=== PATIENT | male | born 1965 | race Caucasian/White ===

== ENCOUNTER 2025-05-09 07:00 | Outpatient (REF) | payer OTHER, SELFPAY ==
--- OUTSIDE RECORDS SUMMARY | 2025-05-09 07:06 | XMS_ITS | Encounter Summary ---
Author Organization [facility]ly [facility] Address [address] [facility] [address] [place] [address] Phone Care Team Providers Care Science Teacher Name Role Phone Mitch Lr MD Unavailable [phone] Anirudh Marcus DO Unavailable [phone] Mitch Lr MD Primary Care Provid er Encounter Details Date Type Department Care Team (Latest Contact Info) Description 05/17/2018 Transcribe Orders [facility] 30 [place], [place] [phone] Mitch Lr MD [address] [phone] Essential hypertension, malignant (Primary Dx) Social History Tobacco Use Types Packs/Day Years Used Date Smoking Tobacco: Never Assessed Sex and Gender Information Value Date Recorded Sex Assigned at Not on file Legal Sex Male 7:27 PM EST Gender Identity Not on file Sexual Orientation Not on file documented as of this encounter Plan of Treatment Not on file documented as of this encounter Procedures Procedure Name Priority Date/Time Associated Diagnosis Comments CBC Routine 05/17/2018 8:16 AM EST Essential hypertension, malignant PSA (SCREENING) Routine 05/17/2018 8:16 AM EST Essential hypertension, malignant LIPID PANEL Routine 05/17/2018 8:16 AM EST Essential hypertension, malignant BASIC METABOLIC PANEL (BMP) Routine 05/17/2018 8:16 AM EST Essential hypertension, malignant documented in this encounter Results * (ABNORMAL) Basic metabolic panel (05/17/2018 8:16 AM EST) SODIUM 141 133 - 146 mmol/L [facility] CHLORIDE 102 96 - 108 mmol/L [facility] POTASSIUM 4.4 3.3 - 5.1 mmol/L [facility] CO2 28 21 - 35 mmol/L [facility] BUN 17 6 - 19 mg/dL [facility] CREATININE 1.00 0.5 - 1.5 mg/dL [facility] GLUCOSE 101(H) 70 - 99 mg/dL [facility] CALCIUM 8.9 8.4 - 10.3 mg/dL [facility] EGFR 87 >59 mL/min/1.7 3m2 [facility] Comment:If patient is black, multiply result by 1.159. Estimated glomerular filtration rate calculated using the CKD-EPI equation. ANION GAP 15 10 - 20 mmol/L [facility] Blood 05/17/2018 8:16 AM EST 05/17/2018 8:18 AM EST us Mitch Lr MD LAB BLOOD BKR ORDERA BLES Final Result [address] [address] * (ABNORMAL) Lipid panel (05/17/2018 8:16 AM EST) HDL 63 mg/dL [facility] Comment: Interpretation <40 mg/dL: Low HDL cholesterol (major risk factor for CHD) Greater than or equal to 60 mg/dL: High HDL cholesterol ( negative risk factor for CHD) HDL - cholesterol is affected by a number of factors, e.g. smoking, excerise, hormones, sex and age. CHOLESTEROL 189 0 - 240 mg/dL [facility] TRIGLYCERIDES 52 30 - 160 mg/dL [facility] LDL 116 50 - 129 mg/dL [facility] Comment: LDL levels in terms of risk for coronary heart disease: <100 mg/dL: Optimal 100-129 mg/dL: Near or above optimal 130-159 mg/dL: Borderline high 160-189 mg/dL: High >190 mg/dL: Very High CARDIAC RISK RATIO 3.0(L) 3.4 - 5.0 C [facility] Blood 05/17/2018 8:16 AM EST 05/17/2018 8:18 AM EST Mitch Lr MD LAB BLOOD BKR ORDERA BLES Final Result [address] [address] * CBC (05/17/2018 8:16 AM EST) WBC 5.12 3.40 - 11.20 K/uL [facility] RBC 4.73 4.50 - 5.50 M/uL [facility] HGB 14.3 13.0 - 17.0 g/dL [facility] HCT 42.8 40.0 - 51.0 % [facility] PLT 159 130 - 400 K/uL [facility] MCV 90.5 79.0 - 98.0 fL [facility] MCH 30.2 27.0 - 34.8 pg [facility] MCHC 33.4 31.5 - 36.0 g/dL [facility] RDW 12.4 10.8 - 14.6 % [facility] MPV 10.2 9.4 - 12.4 fl [facility] NRBC 0.00 0.00 /100 WBCs [facility] ABSOLUTE NRBC 0.00 0.00 K/uL [facility] Blood 05/17/2018 8:16 AM EST 05/17/2018 8:18 AM EST Mitch Lr MD LAB BLOOD BKR ORDERA BLES Final Result [address] [address] * PSA (screening) (05/17/2018 8:16 AM EST) PSA 1.21 0 - 4.00 ng/mL [facility] Blood 05/17/2018 8:16 AM EST 05/17/2018 8:19 AM EST Mitch Lr MD LAB BLOOD BKR ORDERA BLES Final Result [facility] [address] [place] [address] documented in this encounter Visit Diagnoses Diagnosis Essential hypertension, malignant- Primary documented in this encounter Additional Health Concerns Infection Onset Date Last Indicated Resolved Time CoV-Risk 11/10/2019 11/10/2019 11/24/2019 1:23 AM EDT CoV-Risk 06/29/2020 07/01/2020 07/11/2020 1:23 AM EST CoV-Risk 01/23/2022 01/23/2022 01/24/2022 12:2 4 PM EDT COVID-19 01/23/2022 01/23/2022 02/13/2022 1:21 AM EDT documented as of this encounter Care Teams Science Teacher Relationship Specialty Start Date End Date Mitch Lr MD [address] [phone] PCP - General 07/07/17 Mitch Lr MD [address] [phone] Historical LMR Provider 04/21/17 Anirudh Marcus DO 4 [facility] Orthopedics & Sports Medicine, [facility] [place] [address] Historical LMR Provider 04/21/17 documented as of this encounter Additional Source Comments The information contained in this document represents components of the legal health record. It is not the complete legal health record.[facility]
--- OUTSIDE RECORDS SUMMARY | 2025-05-09 07:06 | XMS_ITS | Encounter Summary ---
Author Organization [facility] Address [address] [place] [address] Phone Care Team Providers Care Musical Therapist Name Role Phone Mitch Lr MD Unavailable [phone] Anirudh Marcus DO Unavailable [phone] Mitch Lr MD Primary Care Provid er Encounter Details Date Type Department Care Team (Late st Contact Info) Description 11/26/2020 Procedure Pass [facility], [address] [address] Social History Tobacco Use Types Packs/Day Years Used Date Smoking Tobacco: Never Smokeless Tobacco: Never Alcohol Use Standard Drinks/Week Comments Yes 0 (1 standard drink = 0.6 oz pur e alcohol) 2 beers a day Sex and Gender Information Value Date Recorded Sex Assigned at Not on file Legal Sex Male 7:27 PM EST Gender Identity Not on file Sexual Orientation Not on file documented as of this encounter Last Filed Vital Signs Vital Sign Reading Time Taken Comments Blood Pressure - - Pulse - - Temperature - - Respiratory Rate - - Oxygen Saturation - - Inhaled Oxygen Concentration - - Weight 95.3 kg (210 lb) 11/26/2020 1:33 PM EDT Height 200.7 cm (6' 7 ) 11/26/2020 1:33 PM EDT Body Mass Index 23.66 11/26/2020 1:33 PM EDT documented in this encounter Plan of Treatment Not on file documented as of this encounter Visit Diagnoses Not on filedocumented in this encounter Additional Health Concerns Infection Onset Date Last Indicated Resolved Time CoV-Risk 01/23/2022 01/23/2022 01/24/2022 12:2 4 PM EDT COVID-19 01/23/2022 01/23/2022 02/13/2022 1:21 AM EDT documented as of this encounter Care Teams Musical Therapist Relationship Specialty Start Date End Date Mitch Lr MD [address] [phone] PCP - General 07/07/17 Mitch Lr MD [address] [phone] Historical LMR Provider 04/21/17 Anirudh Marcus DO [address] [place] [address] Orthopedics & Sports Medicine, [place] [address] [email or web address] Historical LMR Provider 04/21/17 documented as of this encounter Additional Source Comments The information contained in this document represents components of the legal health record. It is not the complete legal health record.[facility]
--- OUTSIDE RECORDS SUMMARY | 2025-05-09 07:06 | XMS_ITS | Encounter Summary ---
Author Organization [facility] Address [address] [facility] [address] [place] [address] Phone Care Team Providers Care Testing Tech Name Role Phone Mitch Lr MD Unavailable [phone] Anirudh Marcus DO Unavailable [phone] Mitch Lr MD Primary Care Provid er Encounter Details Date Type Department Care Team (Late st Contact Info) Description 11/21/2020 Ancillary Orders [facility], X-Ray - [facility] 30 [place], [place] [phone] Mitch Lr MD [address] [phone] Pain in right arm Social History Tobacco Use Types Packs/Day Years [...] on file documented as of this encounter Results * XR CERVICAL SPINE 4-5 VIEWS (11/21/2020 9:42 AM EDT) Anatomical Region Laterality Modality C-spine Computed Radiogr aphy 11/21/2020 10:4 3 AM EDT Impressions 11/21/2020 10:49 AM EDT Mild-moderate degenerative disc and endplate changes at C6-C7. Moderate neuroforaminal narrowing at this level on the right and, to a slightly lesser degree, on the left. Narrative 11/21/2020 10:49 AM EDT HISTORY: Cervical pain radiating to the right arm. COMPARISON: None VIEWS: AP, lateral, swimmer's lateral, bilateral foraminal and open-mouth odontoid views. FINDINGS: And mild-moderate disc space narrowing and degenerative endplate changes at C6- C7. Small posterior osteophytes at this level. Very mild disc space narrowing at C5- C6. Moderate narrowing of the right neuroforamen at C6-C7 on the right by uncovertebral joint osteophytes. Mild-moderate narrowing of the contralateral neuroforamen. No evidence of significant facet arthropathy. Prevertebral soft tissues are normal. Procedure Note Panchito Dueñas MD - 11/21/2020 HISTORY: Cervical pain radiating to the right arm. COMPARISON: None VIEWS: AP, lateral, swimmer's lateral, bilateral foraminal and open- mouthodontoid views. FINDINGS: And mild-moderate disc space narrowing and degenerative endplate changesat C6- C7. Small posterior osteophytes at this level. Very mild disc spacenarrowing at C5- C6. Moderate narrowing of the right neuroforamen at C6-C7 on the right byuncovertebral joint osteophytes. Mild-moderate narrowing of thecontralateral neuroforamen. No evidence of significant facet arthropathy. Prevertebral soft tissues are normal. IMPRESSION: Mild-moderate degenerative disc and endplate changes at C6-C7. Moderateneuroforaminal narrowing at this level on the right and, to a slightlylesser degree, on the left. Mitch Lr MD IMG XR SPINE Holly l Result documented in this encounter Visit Diagnoses Diagnosis Pain in right arm Pain in right arm documented in this encounter Additional Health Concerns Infection Onset Date Last Indicated Resolved Time CoV-Risk 01/23/2022 01/23/2022 01/24/2022 12:2 4 PM EDT COVID-19 01/23/2022 01/23/2022 02/13/2022 1:21 AM EDT documented as of this encounter Care Teams Testing Tech Relationship Specialty Start Date End Date Mitch Lr MD [address] [phone] PCP - General 07/07/17 Mitch Lr MD [address] [place] [phone] Historical LMR Provider 04/21/17 Anirudh Marcus DO [address] [place] [address] Orthopedics & Sports Medicine, [place] [address] [email or web address] Historical LMR Provider 04/21/17 documented as of this encounter Additional Source Comments The information contained in this document represents components of the legal health record. It is not the complete legal health record.[facility]
--- OUTSIDE RECORDS SUMMARY | 2025-05-09 07:06 | XMS_ITS | Encounter Summary ---
Author Organization [facility] Address [address] [facility] [address] [place] [address] Phone Care Team Providers Care Liquor Merchant Name Role Phone Mitch Lr MD Unavailable [phone] Anirudh Marcus DO Unavailable [phone] Mitch Lr MD Primary Care Provid er Encounter Details Date Type Department Care Team (Latest Contact Info) Description 11/25/2023 Transcribe Orders [facility] Main 30 [place] [address] Mitch Lr MD [address] [phone] Benign hypertension (Primary Dx) Social History Tobacco Use Types Packs/Day Years Used Date Smoking Tobacco: Never Smokeless Tobacco: Never Alcohol Use Standard Drinks/Week Comments Yes 0 (1 standard drink = 0.6 oz pur e alcohol) 2 beers a day Education Answer Date Recorded Are you interested in more education? Not on moe e 10/28/2022 Are you concerned about learning? Not on file 10/28/2022 No 10/28/2022 No 10/28/2022 Digital Access Answer Date Recorded No 11/29/2022 No 11/29/2022 Reliable internet access at home? Not on file 11/29/2022 Device with a working camera? Not on file Sex and Gender Information Value Date Recorded Sex Assigned at Not on file Legal Sex Male 7:27 PM EST Gender Identity Not on file Sexual Orientation Not on file documented as of this encounter Plan of Treatment Not on file documented as of this encounter Results * (ABNORMAL) Basic metabolic panel (11/25/2023 11:31 AM EDT) SODIUM 138 133 - 146 mmol/L [facility] CHLORIDE 104 96 - 108 mmol/L [facility] POTASSIUM 4.7 3.3 - 5.1 mmol/L [facility] Comment:Specimen slightly he molyzed, result may be falsely elevated. CO2 25 21 - 35 mmol/L [facility] BUN 22(H) 6 - 19 mg/dL [facility] CREATININE 1.00 0.5 - 1.5 mg/dL [facility] GLUCOSE 98 70 - 99 mg/dL [facility] CALCIUM 9.0 8.4 - 10.3 mg/dL [facility] EGFR 88 >59 mL/min/1.7 3m2 [facility] Comment:Estimated glomerular filtration rate calculated using the CKD-EPI refit equation. ANION GAP 14 10 - 20 mmol/L [facility] Blood 11/25/2023 11:3 1 AM EDT 11/25/2023 11:40 AM EDT Mitch Lr MD LAB BLOOD BKR ORDERA BLES Final Result Performing Organization Address City/State/[facility] Co de Phone Number [address] [address] documented in this encounter Visit Diagnoses Diagnosis Benign hypertension- Primary Essential hypertension, benign documented in this encounter Care Teams Liquor Merchant Relationship Specialty Start Date End Date Mitch Lr MD [address] [phone] PCP - General 07/07/17 Mitch Lr MD [address] [phone] Historical LMR Provider 04/21/17 Anirudh Marcus DO [address] [place] [address] Orthopedics & Sports Medicine, [facility] [place] [address] [email or web address] Historical LMR Provider 04/21/17 documented as of this encounter Additional Source Comments The information contained in this document represents components of the legal health record. It is not the complete legal health record.[facility]
--- OUTSIDE RECORDS SUMMARY | 2025-05-09 07:06 | XMS_ITS | Encounter Summary ---
Author Organization [facility] Address [address] [facility] [address] [place] [address] Phone Care Team Providers Care Wire Twister Name Role Phone Mitch Lr MD Unavailable [phone] AngelineAnirudh Bandar DO Unavailable [phone] Mitch Lr MD Primary Care Provid er Reason for Referral * Physical Therapy (Elective) - Closed Specialty Diagnoses / Procedures Referred By Dorian maldonado Referred To Contact Physical Therapy Diagnoses Encounter for rehabilitation Left Shoulder Procedures Evaluate & Treat Mitch Lr MD Phone: tel: fax: [address] [address] Phone: tel: Referral ID Status Reason Start Date Expiration Date Visits Re quested Visits Authorized [id number] Closed 01/18/2020 07/03/2020 50 50 Encounter Details Date Type Department Care Team (Latest Contact Info) Description 01/14/2020 Transcribe Orders [facility] [address] [place] [address] Mitch Lr MD [address] [place] [phone] Encounter for rehabilitation (Primary Dx) Social History Tobacco Use Types [...] Procedure Name Priority Date/Time Associated Diagnosis Comments AMB REFERRAL TO [facility] PHYSICAL THERAPY Routine 01/20/2020 6:23 PM EDT Encounter for rehabilitation documented in this encounter Results * Ambulatory referral to [facility] Physical Therapy (01/20/2020 6:23 PM EDT) Mitch Lr MD AMB [facility] REFERRALS Fi nal Result documented in this encounter Visit Diagnoses Diagnosis Encounter for rehabilitation- Primary documented in this encounter Additional Health Concerns Infection Onset Date Last Indicated Resolved Time CoV-Risk 06/29/2020 07/01/2020 07/11/2020 1:23 AM EST CoV-Risk 01/23/2022 01/23/2022 01/24/2022 12:2 4 PM EDT COVID-19 01/23/2022 01/23/2022 02/13/2022 1:21 AM EDT documented as of this encounter Care Teams Wire Twister Relationship Specialty Start Date End Date Mitch Lr MD [address] [phone] PCP - General 07/07/17 Mitch Lr MD [address] [place] [phone] Historical LMR Provider 04/21/17 Anirudh Marcus DO [address] [place] [address] Orthopedics & Sports Medicine, [facility] [place] [address] [email or web address] Historical LMR Provider 04/21/17 documented as of this encounter Additional Source Comments The information contained in this document represents components of the legal health record. It is not the complete legal health record.[facility]
--- OUTSIDE RECORDS SUMMARY | 2025-05-09 07:06 | XMS_ITS | Encounter Summary ---
Author Organization [facility] Address [address] [facility] [address] [place] [address] Phone Care Team Providers Care Knife Finisher Name Role Phone Mitch Lr MD Unavailable [phone] Anirudh Marcus DO Unavailable [phone] Mitch Lr MD Primary Care Provid er Reason for Referral * MRI/CAT Scan - Closed Specialty Diagnoses / Procedures Referred By Contac t Referred To Contact Radiology Diagnoses Arm pain, right Procedures MRI Cervical Spine CHG MRI, CERV SPINE Mitch Lr MD Phone: tel: fax: Referral ID Status Reason Start Date Expiration Date Visits Re quested Visits Authorized [id number] Closed 11/25/2020 02/23/2021 1 1 Encounter Details Date Type Department Care Team (Late st Contact Info) Description 11/26/2020 Ancillary Orders Virtual Department 30 [place] [address] Mitch Lr MD [address] [facility] [address] [place] [address] Arm pain, right Social History Tobacco Use Types Packs/Day Years [...] documented as of this encounter Results * MRI CERVICAL SPINE (BONE) WITHOUT CONTRAST (12/03/2020 7:15 AM EDT) Anatomical Region Laterality Modality C-spine Magnetic Resonan ce 12/03/2020 8:09 AM EDT Impressions 12/03/2020 8:20 AM EDT C5-6 and C6-7 disc disease with mild C5-6 canal stenosis and mild bilateral neural foraminal stenosis at these levels. No large disc herniation. Narrative 12/03/2020 8:20 AM EDT HISTORY: SIGNIFICANT CERVICAL DEGENERATION WITH FORAMINAL STENOSIS AND NOW RIGHT MODERATE RT ARM NUMBNESS AND WEAKNESS, WORSE WITH NECK EXTENSION, ? CERVICAL NERVE COMPRESSION; . COMPARISON: Cervical spine x-rays 11/21/2020. TECHNIQUE: Exam performed on a 1.5 Misty high-field MRI scanner. Sagittal T1, T2 and STIR, axial T2* gradient echo and 3-D bright fluid sequences were obtained. MRI CERVICAL SPINE FINDINGS: Normal lordosis. Minimal C5 and mild C6-7 disc space narrowing with endplate spurring. No compression fractures. No malalignment. Incidental T2 vertebral body hemangioma. No destructive or suspicious bone lesions. No cerebellar tonsil herniation. No spinal cord atrophy, lesions or syrinx. Paraspinal soft tissues are normal. Additional findings: No incidental findings of concern. C2-3: Normal. C3-4: Mild left facet arthropathy. C4-5: Mild left facet arthropathy. C5-6: Small generalized disc osteophyte complex and mild posterior ligamentous hypertrophy causing mild canal stenosis-spinal canal AP dimension measuring 8 mm. Mild bilateral neural foraminal stenosis due to uncovertebral spurring. C6-7: Small generalized disc osteophyte complex. Mild bilateral neural foraminal stenosis due to spurring. C7-T1: Normal. Procedure Note Ramesh Quintana MD - 12/03/2020 HISTORY: SIGNIFICANT CERVICAL DEGENERATION WITH FORAMINAL STENOSIS ANDNOW RIGHT MODERATE RT ARM NUMBNESS AND WEAKNESS, WORSE WITH NECKEXTENSION, ? CERVICAL NERVE COMPRESSION; . COMPARISON: Cervical spine x-rays 11/21/2020. TECHNIQUE: Exam performed on a 1.5 Misty high-field MRI scanner. SagittalT1, T2 and STIR, axial T2* gradient echo and 3-D bright fluid sequenceswere obtained. MRI CERVICAL SPINE FINDINGS: Normal lordosis. Minimal C5 and mild C6-7 disc space narrowing withendplate spurring. No compression fractures. No malalignment. IncidentalT2 vertebral body hemangioma. No destructive or suspicious bone lesions.No cerebellar tonsil herniation. No spinal cord atrophy, lesions orsyrinx. Paraspinal soft tissues are normal. Additional findings: No incidental findings of concern. C2-3: Normal. C3-4: Mild left facet arthropathy. C4-5: Mild left facet arthropathy. C5-6: Small generalized disc osteophyte complex and mild posteriorligamentous hypertrophy causing mild canal stenosis-spinal canal APdimension measuring 8 mm. Mild bilateral neural foraminal stenosis due touncovertebral spurring. C6-7: Small generalized disc osteophyte complex. Mild bilateral neuralforaminal stenosis due to spurring. C7-T1: Normal. IMPRESSION: C5-6 and C6-7 disc disease with mild C5-6 canal stenosis and mildbilateral neural foraminal stenosis at these levels. No large discherniation. Mitch Lr MD IMG MR XSPECIALTY Fi nal Result documented in this encounter Visit Diagnoses Diagnosis Arm pain, right Pain in soft tissues of limb Arm pain, right Pain in soft tissues of limb documented in this encounter Additional Health Concerns Infection Onset Date Last Indicated Resolved Time CoV-Risk 01/23/2022 01/23/2022 01/24/2022 12:2 4 PM EDT COVID-19 01/23/2022 01/23/2022 02/13/2022 1:21 AM EDT documented as of this encounter Care Teams Knife Finisher Relationship Specialty Start Date End Date Mitch Lr MD [address] [place] [phone] PCP - General 07/07/17 Mitch Lr MD [address] [place] [phone] Historical LMR Provider 04/21/17 Anirudh Marcus DO [address] [place] [address] Orthopedics & Sports Medicine, [place], [place] [phone] [email or web address] Historical LMR Provider 04/21/17 documented as of this encounter Additional Source Comments The information contained in this document represents components of the legal health record. It is not the complete legal health record.[facility]
--- OUTSIDE RECORDS SUMMARY | 2025-05-09 07:06 | XMS_ITS | Clinical Summary ---
Author Organization [facility] Address [address] [facility] [address] [place] [id number] Phone Care Team Providers Care Compounder Flavorings Name Role Phone Mitch Lr MD Unavailable [phone] AngelineMilagrosAnirudh M DO Unavailable [phone] Mitch Lr MD Primary Care Provid er Allergies No known active allergies Medications valsartan (DIOVAN) 80 MG tablet Take 80 mg by mouth daily. Active Active Problems No known active problems Immunizations Immunization Administration Dates Next Due COVID-19 (Pre-04/25) Pfizer Vaccine, mRNA, PF 04/08/2021,07/17/2020,06/25/2020 Influenza Quadrivalent Preservative Free IM 08/2022,04/11/2022,04/02/2021 Social History Tobacco Use Types Packs/Day Years [...] on file Sexual Orientation Not on file Last Filed Vital Signs Vital Sign Reading Time Taken Comments Blood Pressure - - Pulse - - Temperature - - Respiratory Rate - - Oxygen Saturation - - Inhaled Oxygen Concentration - - Weight 95.3 kg (210 lb) 11/26/2020 1:33 PM EDT Height 200.7 cm (6' 7 ) 11/26/2020 1:33 PM EDT Body Mass Index 23.66 11/26/2020 1:33 PM EDT Plan of Treatment Health Maintenance Due Date Last Done Comments DEPRESSION SCREENING 1979 HEPATITIS C SCREENING 1985 HIV ONE-TIME SCREENING (18-65 YEARS) 1985 COLOGUARD 2012 COLONOSCOPY 2012 COLORECTAL CANCER SCREENING 2012 FIT TEST 2012 FOBT 2012 SIGMOIDOSCOPY 2012 VIRTUAL COLONOSCOPY 2012 PNEUMOCOCCAL VACCINES (50+ years) (1 of 1 - PCV) 2017 CREATININE LEVEL 11/24/2024 11/25/2023, , 12/03/2020, Additional history exists POTASSIUM LEVEL 11/24/2024 11/25/2023, 0501/2022, 12/03/2020, Additional history exists LIPID PANEL 12/19/2024 12/20/2019, 05/17/2018 INFLUENZA VACCINE (#1) 2025 , 04/11/2022, 04/02/2021, Additional history exists COVID-19 VACCINE (2024- season) 2025 10/26/2021, 04/08/2021, 07/17/2020, Additional history exists Adult Td,Tdap Booster 11/20/2030 11/20/2020 RSV VACCINE (1 - 1-dose 75+ series) 2042 ZOSTER VACCINES Completed 01/19/2019, 11/17/2018 SMOKING STATUS SCREENING (Once After 26 Yrs) Completed 10/31/2019 HEPATITIS A VACCINES Aged Out No long er eligible based on patient's age to complete this topic HIB VACCINES Aged Out No longer eligi ble based on patient's age to complete this topic MENINGOCOCCAL VACCINES (ACWY) Aged Out No longer eligible based on patient's age to complete this topic MENINGOCOCCAL VACCINES (B) Aged Out N o longer eligible based on patient's age to complete this topic Medical Devices Not on file Procedures Procedure Name Priority Date/Time Associated Diagnosis Comments BASIC METABOLIC PANEL (BMP) Routine 11/25/2023 11:31 AM EDT Benign hypertension LIPID PANEL Routine 12/20/2019 7:20 AM EDT Essential hypertension, malignant from Last 3 Months or Most Recently Relevant to Health Maintenance Results * (ABNORMAL) Basic metabolic panel (11/25/2023 11:31 AM EDT) SODIUM 138 133 - 146 mmol/L [facility] CHLORIDE 104 96 - 108 mmol/L [facility] POTASSIUM 4.7 3.3 - 5.1 mmol/L [facility] Comment:Specimen slightly he molyzed, result may be falsely elevated. CO2 25 21 - 35 mmol/L [facility] BUN 22(H) 6 - 19 mg/dL [facility] CREATININE 1.00 0.5 - 1.5 mg/dL [facility] GLUCOSE 98 70 - 99 mg/dL [facility] CALCIUM 9.0 8.4 - 10.3 mg/dL [facility] EGFR 88 >59 mL/min/1.7 3m2 [facility] Comment:Estimated glomerular filtration rate calculated using the CKD-EPI refit equation. ANION GAP 14 10 - 20 mmol/L [facility] Blood 11/25/2023 11:3 1 AM EDT 11/25/2023 11:40 AM EDT us Mitch Lr MD LAB BLOOD BKR ORDERA BLES Final Result [facility] [address] [place] [address] * (ABNORMAL) Lipid panel (12/20/2019 7:20 AM EDT) HDL 63 mg/dL [facility] Comment: Interpretation <40 mg/dL: Low HDL cholesterol (major risk factor for CHD) Greater than or equal to 60 mg/dL: High HDL cholesterol ( negative risk factor for CHD) HDL - cholesterol is affected by a number of factors, e.g. smoking, excerise, hormones, sex and age. CHOLESTEROL 181 0 - 240 mg/dL [facility] TRIGLYCERIDES 78 30 - 160 mg/dL [facility] LDL 102 50 - 129 mg/dL [facility] Comment: LDL levels in terms of risk for coronary heart disease: <100 mg/dL: Optimal 100-129 mg/dL: Near or above optimal 130-159 mg/dL: Borderline high 160-189 mg/dL: High >190 mg/dL: Very High CARDIAC RISK RATIO 2.9(L) 3.4 - 5.0 C [facility] Blood 12/20/2019 7:20 AM EDT 12/20/2019 7:26 AM EDT Mitch Lr MD LAB BLOOD BKR ORDERA BLES Final Result [address] [id number] from Last 3 Months or Most Recently Relevant to Health Maintenance [place] [address] [address] POS [employer] POS [employer] [place] [address] [address] POS UNITED POS POS Care Teams Compounder Flavorings Relationship Specialty Start Date End Date Mitch Lr MD [address] [phone] PCP - General 07/07/17 Mitch Lr MD [address] [phone] Historical LMR Provider 10/19/17 Anirudh Marcus DO [address] [place] [address] Orthopedics & Sports Medicine, [facility] [place] [address] [email or web address] Historical LMR Provider 04/21/17 Additional Source Comments The information contained in this document represents components of the legal health record. It is not the complete legal health record.[facility]
[2025-05-09 07:18] LABS: Hematocrit 43.5 % (42.0-52.0); Hemoglobin 14.5 g/dl (14.0-18.0); Mean Corpuscular HGB Conc 33.3 g/dl (31.0-36.0); Mean Corpuscular Hemoglobin 30.1 pg (27.0-33.0); Mean Corpuscular Volume 90.2 fL (80.0-98.0); NRBC Abs Auto 0.000 X10*3/uL (0.0-0.012); NRBC Pct Auto 0.0 /100WBC (0.0-0.2); Platelet Count 143 X10*3/uL (160-400); Red Blood Count 4.82 X10*6/uL (4.60-5.80); White Blood Count 3.8 X10*3/uL (4.8-10.8)
[2025-05-09 07:59] LABS: Anion Gap 10 (12-20); Blood Urea Nitrogen 16 mg/dL (9-16); Calcium 8.6 mg/dL (8.4-10.2); Carbon Dioxide 28 mmol/L (22-29); Chloride 107 mmol/L (96-108); Cholesterol 185 mg/dL (<200); Estimated Glomerular Filt Rate > 60; HDL Cholesterol 57 mg/dL (>40); Potassium 4.6 mmol/L (3.3-5.1); Sodium 140 mmol/L (135-145); Triglycerides 77 mg/dL (<150)
== END 2025-05-09 07:01 | disposition home or self-care (01) ==
LOC: HO.LAB 07:00
PROVIDERS: PCP Internal Medicine; Visit Provider Internal Medicine
DX: Z00.00 Encounter for general adult medical examination without abnormal findings (principal); I10 Essential (primary) hypertension
CPT/HCPCS: 36415; 80048; 80061; 85027